=== PATIENT | female | born 1975 | race Caucasian/White ===

== ENCOUNTER 2016-12-01 07:53 | Emergency (ER) | payer OTHER ==
[2016-12-01 09:13] VITALS: BP 93/49
--- NOTE | 2016-12-01 09:17 | UC ---
Respiratory Complaint HPI - HPI Summary HPI Summary: 41 yo female with cough/post nasal drip /sinus pain and pressure x 5 days no f/c no cp or sob hx sinusitis - History of Current Complaint Chief Complaint: UCRespiratory Stated Complaint: SINUS,SORE THROAT,EAR PAIN Time Seen by Provider: 12/01/16 09:04 Hx Obtained From: Patient Hx Last Menstrual Period: 11/27/16 Onset/Duration: Gradual Onset, Lasting Days Timing: Constant Severity Initially: Moderate Severity Currently: Moderate Pain Intensity: 4 Pain Scale Used: 0-10 Numeric Character: Cough: Nonproductive Aggravating Factors: Nothing Alleviating Factors: Nothing Associated Signs And Symptoms: Positive: Nasal Congestion, Hoarseness, Sinus Discomfort - Allergies/Home Medications Allergies/Adverse Reactions: Allergies Allergy/AdvReac Type Severity Reaction Status Date / Time Penicillins Allergy Airway Verified 12/01/16 08:26 Obstruction Sulfa Antibiotics Allergy Airway Verified 12/01/16 08:26 Obstruction Home Medications: Home Medications Acetaminophen [Acetaminophen Extra Stren] 1,500 mg PO PRN 12/01/16 [History] Pantoprazole TAB (NF) [Protonix TAB (NF)] 20 mg PO DAILY 12/01/16 [History Confirmed 12/01/16] buPROPion TAB* [Wellbutrin TAB*] 100 mg PO BID 12/01/16 [History Confirmed 12/01] PMH/Surg Hx/FS Hx/Imm Hx Previously Healthy: Yes Endocrine History Of: Reports: Thyroid Disease - Hypothyroidism Denies: Diabetes Cardiovascular History Of: Denies: Hypertension GI/ History Of: Denies: Ulcer, Gastrointestinal Bleed, Gall Bladder Disease, Renal Disease Neurological History Of: Reports: Migraine - ON MEDS Denies: TIA, CVA, Dementia, Seizures Psychological History Of: Reports: Anxiety - ON MEDS Other History Of: Negative For: Anticoagulant Therapy - Surgical History Surgical History: Yes Surgery Procedure, Year, and Place: JULIA VARICOSE VEINS, 2007[place] [facility] [place] , [facility] [place] - Family History Known Family History: Positive: Hypertension - dad - Social History Alcohol Use: None Substance Use Type: None Smoking Status (MU): Former Smoker Amount Used/How Often: PACK A DAY Length of Time of Smoking/Using Tobacco: 7 years Have You Smoked in the Last Year: No When Did the Patient Quit Smoking/Using Tobacco: 2009 - Immunization History Most Recent Influenza Vaccination: June 2015 Most Recent Tetanus Shot: UNKNOWN Most Recent Pneumonia Vaccination: NEVER Review of Systems Constitutional: Negative Skin: Negative Eyes: Negative ENT: Ear Ache, Nasal Discharge Respiratory: Cough Cardiovascular: Negative Gastrointestinal: Negative Genitourinary: Negative Motor: Negative Neurovascular: Negative Musculoskeletal: Negative Neurological: Negative Psychological: Negative All Other Systems Reviewed And Are Negative: Yes Physical Exam Triage Information Reviewed: Yes Appearance: Well-Appearing, No Pain Distress, Well-Nourished Vital Signs: Initial Vital Signs Temp 99.7 F 12/01/16 08:22 Pulse 73 12/01/16 08:22 Resp 14 12/01/16 08:22 BP 93/49 12/01/16 08:22 Pulse Ox 100 12/01/16 08:22 Vital Signs Reviewed: Yes Eyes: Positive: Conjunctiva Clear ENT: Positive: Hearing grossly normal, Nasal congestion, Nasal drainage, TM bulging, Other: - bilat max sinus tenderness L>R. Negative: Tonsillar swelling , Tonsillar exudate, Trismus, Muffled/hoarse voice Neck: Positive: Supple, Nontender, No Lymphadenopathy Respiratory: Positive: Lungs clear, Normal breath sounds, No respiratory distress, No accessory muscle use Cardiovascular: Positive: RRR, No Murmur Musculoskeletal: Positive: ROM Intact, No Edema Neurological: Positive: Alert Psychological Exam: Normal Skin Exam: Normal UC Diagnostic Evaluation - Laboratory O2 Sat by Pulse Oximetry: 100 - normal/not hypoxic Respiratory Course/Dx - Differential Dx/Diagnosis Provider Diagnoses: acute sinusitis Discharge - Discharge Plan Condition: Stable Disposition: HOME Prescriptions: Azithromycin TAB* [Zithromax TAB (Z-JOSE M) 250 mg #6 tabs] 250 mg PO DAILY #6 tab Patient Education Materials: Sinusitis (ED) Forms: *Gen. Provider Communication Referrals: Najma Butler MD [Primary Care Provider] - If Needed Additional Instructions: recheck for new or worsening symptoms recheck next week if not better
== END 2016-12-01 09:16 | disposition home or self-care (01) ==
LOC: UCCORT 07:53
DX: J01.90 Acute sinusitis, unspecified (principal); E03.9 Hypothyroidism, unspecified; G43.909 Migraine, unspecified, not intractable, without status migrainosus; F41.9 Anxiety disorder, unspecified; Z88.0 Allergy status to penicillin; Z88.2 Allergy status to sulfonamides; Z87.891 Personal history of nicotine dependence
CPT/HCPCS: 99212; G0463

== ENCOUNTER 2017-01-06 06:35 | Day surgery (SDC) | payer OTHER ==
--- NOTE | 2016-12-29 18:56 | HP ---
HISTORY AND PHYSICAL: DATE OF ADMISSION: 01/06/17 The patient is scheduled at [facility] for surgery on 01/06/17. CHIEF COMPLAINT: Varicose veins, venous stasis disease of the right lower leg and ganglion cyst of the left wrist. HISTORY OF PRESENT ILLNESS: This is a 41-year-old female with a history of recurrent varicose veins involving her right leg. Her past history is significant for undergoing vein surgery approximately 7 years ago on both legs and did quite well until recently. Recently, she developed and noticed increasing varicose veins, large truncal varicosities involving the right leg along the anterolateral aspect of the leg. She had undergone gastric bypass in 2014 and after losing 120 pounds since the bypass, these varicose veins became more noticeable. She has no prior history of DVT. Her last episode of vein symptoms were prior to her surgery 7 years ago, had an episode of phlebitis during her , but other than that and since that surgery, has had no recurrent thrombophlebitis. The patient also complains of swelling at the end of the day involving her right leg. She complains of heaviness and achiness involved in the right leg. Along with her complaints of the right leg symptoms , she brought to Dr. Foley's attention a bump above the wrist, on the inner aspect of her left wrist. Physical exam, the right leg reveals no ulceration to her skin, hyperpigmentation and no evidence of thrombophlebitis. There are large truncal varicosities in the 8 mm range on the anterolateral aspect of the thigh anteriorly as well as laterally and below the knee. She does have what appears to be a ganglion cyst just above the wrist, on the inner aspect of the wrist towards the base of the thumb. This is mobile, smooth approximately 1 cm in size. Duplex scan was done on 12/08/16 of the right leg, this revealed deep system was found to be open, there was no evidence of DVT or reflux. The greater saphenous vein at the saphenofemoral junction measured 10.8 mm. The greater saphenous vein itself was absent. The reflux time at saphenofemoral junction is 3.8 seconds. The anteromedial accessory branch measured 7.5 mm with the reflux time of 3.1 seconds. There are varicosities derived from this medial accessory branch. The short saphenous vein on the right measured 4.4 mm without reflux. The varicose vein of the medial aspect of this leg by ultrasound measured 8.9 mm. Due to these findings by ultrasound and physical exam and the fact that the patients is symptomatic, it was Dr. Foley's recommendation to proceed with endoluminal closure of an incompetent right medial accessory branch of the right leg with extensive microphlebectomies performed on the right leg. The patient uses her hands a great deal. 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 Foley will perform excision of this ganglion cyst of the left wrist. This surgery itself is scheduled at [facility] on 01/06/17. The patient understands the procedure itself, is aware of the risks and wishes to proceed with the surgery as explained to her. PAST MEDICAL HISTORY: Significance for having hypothyroidism since a teenager. History of migraine headaches for which she takes propranolol. She has a history of anxiety and takes medications for that as well. History of stomach ulcer in the past. She had been obese prior to her gastric bypass surgery. In 2014, she underwent gastric bypass with Dr. Redd and has since lost 120 pounds. She is status post vein surgery to both lower legs approximately 11 years ago done by Dr. Foley with an excellent results. She denies any history of cardiac disease, heart murmur, diabetes, hypertension , or any other chronic medical disorders. Since the gastric bypass, she said to have a balloon dilatation of the bypass, so this was done twice since the surgery and the last episode of this was 8 months ago. Her eating associated with gastric bypass, so she needs to eat something approximately every hour in small amounts. MEDICATION: She is unable to take ibuprofen due to the gastric bypass. CURRENT MEDICATIONS: That she is taking is: 1. Synthroid 100 mcg once daily. 2. She takes propranolol 60 mg p.o. b.i.d. this is for her migraine. 3. She takes bupropion 100 mg b.i.d. for anxiety. ALLERGIES: She is allergic to PENICILLIN and SULPHATE medications, has an anaphylactic reaction to those. FAMILY HISTORY: Significant for on her paternal side, father and other members having extensive varicose veins issues. Father is from an aneurysm. SOCIAL HISTORY: She is . She has 1 daughter who is age 11. 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 She is a nonsmoker, but previously smoked 1 pack per day for 15 years and has no history of alcohol use, heavy use, drinks socially only and very limited since her gastric bypass. She has no history of hepatitis. PHYSICAL EXAMINATION VITAL SIGNS: The patient is 5 feet 5 inches, weight is 130 pounds. Blood pressure is 117/79. BMI is 21.6. Pulse is 89, respiratory rate is 18. HEENT: Within normal limits. NECK: Supple. There is no JVD or carotid bruits. Her thyroid is felt to be normal. LUNGS: Her lungs are clear throughout. HEART: Regular rhythm without a murmur heard. BREAST EXAM: Was not done. It was done by her primary who she sees regularly and she is due for her first mammogram at age 42. ABDOMEN: Soft and nontender. She does have some well-healed scars, which are minimal from laparoscopic surgery, but there is no masses and no enlarged organs. The abdomen itself is soft and nontender. EXTREMITIES: Reveal pulses are good in the femoral region distally down to the dorsalis pedis for 2 + pulses. She does have visible varicose veins on the anterior aspect of her right leg, this then extends down laterally along the leg and it is fairly extensive. She has trace edema. The left leg is really without varicose veins. NEUROLOGIC: The patient is alert and oriented. She is very pleasant. She is nonfocal and grossly intact. IMPRESSION: 1. The patient with recurrent varicose veins involving the right lower leg. 2. The patient with ganglion cyst on the inner aspect of her left wrist measures approximately 8 mm to a centimeter in size, quite mobile. PLAN: The patient is to undergo endoluminal closure of the right medial accessory branch of the right lower leg, extensive microphlebectomies of the right leg, and excision of ganglion cyst of the left wrist. This will all be performed by Dr. Foley. Prescription for Tylenol with Codeine was called into her pharmacy, so that will be available to her postop. The patient is unable to take ibuprofen because of the gastric bypass. LEEANNE FAULKNER [id number]/[facility] #: [id number] [facility]ITAL[facility]
[~2017-01-06 06:35] MED LIST: Buffered Lidocaine 0.9% SYRIN* 5 ML/SYR SYRINGE INTRADERM ONE; Dexamethasone IV* 4 MG/ML 1 ML (4 MG) IV SLOW PU ONE; Dexamethasone IV* 4 MG/ML 1 ML (4 MG) ONE
[2017-01-06] MEDS ORDERED: Lidocaine 2% PF* 10 ML AMP ONE (07:13)
[2017-01-06] MEDS ORDERED: EPINEPHrine AMP 1 MG/ML ONE (07:13)
[2017-01-06] MEDS ORDERED: Lidocaine 2% PF * 5 ML VIAL ONE (07:13)
[2017-01-06] MEDS ORDERED: Lidocaine 1% MPF* 2 ML VIAL ONE (07:14)
[2017-01-06] MEDS ORDERED: Sodium Bicarbonate 8.4% IV* 50 ML VIAL ONE (07:26)
[2017-01-06] MEDS ORDERED: Midazolam* 1 MG/ML 5 ML VIAL (5 MG) ONE (07:36)
[2017-01-06] MEDS ORDERED: fentaNYL* 50 MCG/ML 2 ML VIAL (100 MCG VIAL) ONE (07:36)
[2017-01-06] MEDS ORDERED: POLIDOCANOL IV ONE (07:36)
[2017-01-06] MEDS ORDERED: Ondansetron INJ* 2 MG/ML VIAL ONE (07:37)
[2017-01-06] MEDS ORDERED: Ketorolac INJ* 30 MG/ML 1 ML VIAL ONE (07:37)
[2017-01-06] MEDS ORDERED: Propofol* 10 MG/ML 20 ML BTL IV PUSH ONE (07:37)
[2017-01-06] MEDS ORDERED: Lidocaine 1% INJ* 10 MG/ML 30 ML SDV ONE (07:46)
[2017-01-06 09:57] VITALS: BP 90/48
--- NOTE | 2017-01-07 06:23 | OP ---
DATE OF OPERATION: 01/06/17 - [facility] DATE OF : 79 SURGEON: Dell Foley MD ANESTHESIOLOGIST: Beau Sabillon MD ANESTHESIA: Local plus MAC. PRE-OP DIAGNOSIS: Superficial venous reflux disease of right lower extremity secondary to an incompetent right anteromedial accessory branch of the greater saphenous vein. POST-OP DIAGNOSIS: Superficial venous reflux disease of right lower extremity secondary to an incompetent right anteromedial accessory branch of the greater saphenous vein. OPERATIVE PROCEDURE: 1. Endovenous laser ablation of medial accessory branch of the greater saphenous vein. 2. Extensive microphlebectomies, greater than 20 incisions. 3. Excision of ganglion cyst of the left wrist. INDICATIONS: The patient is a 41-year-old female with symptomatic varicose veins of the right lower extremity secondary to an incompetent medial accessory branch of the greater saphenous vein. The patient has symptomatic ganglion cyst of the left wrist. ESTIMATED BLOOD LOSS: Less than 10 cc. DESCRIPTION OF PROCEDURE: The patient was taken to the procedure room. Two operations were done separately, first the right lower extremity surgery was done first. The patient was prepped and draped in the usual sterile fashion. After adequate identification and time-out, lidocaine 1% was used to infiltrate on the medial upper third of the thigh and percutaneous cannulation of the medial accessory branch was done under ultrasound guidance. Once the small needle and wire were in place, the needle was exchanged for a 4-Nepalese catheter. Subsequently, we proceeded to advance the 600 micron laser fiber inside the medial accessory branch, positioned into tip of the laser fiber 1.5 cm from the sapheno-femoral junction. We then proceeded to infiltrate tumescent local anesthesia around the vein and the catheter from the entrance point up to the saphenofemoral junction. After this was completed, we then proceeded to activate the diode laser at 12 nuno continuously. Catheter was then pulled back slowly and gradually delivering a total of 600 joules to the medial accessory branch. After this was completed, there was evidence of closure of the treated vein; however, the common femoral vein appeared to be compressible without any abnormalities. After this was completed, we then proceeded to remove the previously marked varicose veins by small incisions in a stab avulsion technique. Greater than 20 incisions were performed. After this was completed, the incisions were closed with 5-0 Prolene and Steri- Strips. A light pressure dressing was applied to the right lower extremity. The patient tolerated the procedure well. We then proceeded to prep and drape with proper time-out of the left wrist for excision of the ganglion cyst. After this was done and under sedation, lidocaine 1% was used to infiltrate in the area of the ganglion cyst located on the lateral aspect of the wrist. The cyst measured approximately 8-mm in diameter. A good local anesthesia had been given around the area. A transverse incision was performed. The incision was carried down through the skin and subcutaneous tissue. Veins from the surrounding area were retracted and exposure of the capsule of the cyst was done. The cyst was then dissected off completely all the way down to the wrist and the capsule was then transected and sent as a specimen. Synovial fluid was came out of the cyst. The cyst was left open. The area was checked for hemostasis. No bleeding was noted. Subcutaneous tissue was closed with interrupted 4-0 Vicryl suture and the skin was closed with vertical mattress 5- 0 Prolene sutures and a hand dressing was applied to the left hand. The procedure was well tolerated. She was taken in good condition to recovery room. [id number]/[facility] #: [id number] [facility]ITAL[facility]
== END 2017-01-06 09:57 | disposition home or self-care (01) ==
LOC: OREAST 06:35
PROVIDERS: ATTEND Surgery
DX: I87.2 Venous insufficiency (chronic) (peripheral) (principal); I83.891 Varicose veins of right lower extremity with other complications; M67.432 Ganglion, left wrist; E03.9 Hypothyroidism, unspecified; F41.9 Anxiety disorder, unspecified; G43.909 Migraine, unspecified, not intractable, without status migrainosus; Z88.0 Allergy status to penicillin; Z88.2 Allergy status to sulfonamides; Z87.891 Personal history of nicotine dependence
CPT/HCPCS: 88300; 88304; J0171; J1100; J1885; J2001; J2250; J2405; J2704; J3010

== ENCOUNTER 2018-08-27 15:50 | Emergency (ER) | payer OTHER ==
[2018-08-27 16:25] VITALS: BP 114/65
[2018-08-27] MEDS ORDERED: Albuterol 2.5 MG/3 ML NEB.SOL* (0.083%) INH ONE (16:34)
--- NOTE | 2018-08-27 16:34 | UC ---
UC General HPI - HPI Summary HPI Summary: PT C/O A HEADACHE, SINUS CONGESTION, POST NASAL DRIP, SORE THROAT, SWOLLEN GLANDS AND COUGH WITH CHEST CONGESTION PLUS LUNGS FEEL TIGHT X 1 WEEK. NO CP OR HX OF ASTHMA OR COPD. + BODY ACHES. 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 - History of Current Complaint Chief Complaint: UCGeneralIllness Stated Complaint: CHUNG,SWOLLEN GLANDS,ST,ACHY,BILATERAL EAR PAIN Time Seen by Provider: 08/27/18 16:20 Hx Obtained From: Patient Hx Last Menstrual Period: 08/05/18 Onset/Duration: Gradual Onset Timing: Constant Pain Intensity: 6 Associated Signs & Symptoms: Negative: Chest Pain, Diarrhea, Vomiting - Allergy/Home Medications Allergies/Adverse Reactions: Allergies Allergy/AdvReac Type Severity Reaction Status Date / Time Penicillins Allergy Airway Verified 08/27/18 16:23 Obstruction Sulfa (Sulfonamide Allergy Airway Verified 08/27/18 16:23 Antibiotics) Obstruction PMH/Surg Hx/FS Hx/Imm Hx Endocrine History: Thyroid Disease GI/ History: Gastroesophageal Reflux Neurological History: Migraine Psychological History: Depression Other History Of: Negative For: Anticoagulant Therapy - Surgical History Surgical History: Yes Surgery Procedure, Year, and Place: JULIA VARICOSE VEINS, 2007, [facility] [place]. [place] , [facility] [place]. leaky stitches from gastric bypass - Family History Known Family History: Positive: Hypertension - dad - Social History Alcohol Use: None Substance Use Type: None Smoking Status (MU): Former Smoker Amount Used/How Often: PACK A DAY for 10 years Length of Time of Smoking/Using Tobacco: 7 years Have You Smoked in the Last Year: No When Did the Patient Quit Smoking/Using Tobacco: 2006 - Immunization History Most Recent Influenza Vaccination: June 2015 Most Recent Tetanus Shot: UNKNOWN Most Recent Pneumonia Vaccination: NEVER Review of Systems All Other Systems Reviewed And Are Negative: Yes Constitutional: Positive: Fever Skin: Positive: Negative Eyes: Positive: Negative Respiratory: Negative: Shortness Of Breath Cardiovascular: Negative: Palpitations, Chest Pain Gastrointestinal: Positive: Negative Genitourinary: Positive: Negative Motor: Positive: Negative Neurovascular: Positive: Negative Musculoskeletal: Positive: Negative Psychological: Positive: Negative Physical Exam Triage Information Reviewed: Yes Appearance: Well-Appearing Vital Signs: Initial Vital Signs Temp 97.8 F 08/27/18 16:21 Pulse 77 08/27/18 16:21 Resp 15 02/11/19 16:21 BP 114/65 08/27/18 16:21 Pulse Ox 100 08/27/18 16:21 Vital Signs Reviewed: Yes Eyes: Positive: Conjunctiva Clear ENT: Positive: Pharyngeal erythema, TMs normal. Negative: Nasal drainage Neck: Positive: Supple, Tenderness @ - PERITONSILAR NODES, Enlarged Nodes @ - PERITONSILAR NODES Respiratory: Positive: Lungs clear, No respiratory distress, Decreased breath sounds Cardiovascular: Positive: RRR, No Murmur Abdomen Description: Positive: Nontender, No Organomegaly, Soft Bowel Sounds: Positive: Present Musculoskeletal: Positive: ROM Intact Neurological: Positive: Alert Psychological: Positive: Age Appropriate Behavior Skin Exam: Normal Diagnostics - Laboratory Diagnostic Studies Completed/Ordered: RAPID STREP=NEG. RAPID FLU=NEG Re-Evaluation - Re-Evaluation First Eval Re-Evaluation Time: 17:06 Change: Improved - BETTER AERATION. Course/Dx - Differential Dx - Multi-Symptom Differential Diagnoses: Other - RAPID STREP AND FLU ARE NEGATIVE. URI AND BRONCHITIS ON EXAM. NO INDICATION FOR ANTIBIOTICS - Diagnoses Provider Diagnosis: URI (upper respiratory infection), Bronchitis Discharge - Sign-Out/Discharge Documenting (check all that apply): Patient Departure All imaging exams completed and their final reports reviewed: No - Discharge Plan Condition: Stable Disposition: HOME Prescriptions: Albuterol HFA INHALER* [Ventolin HFA Inhaler*] 2 puff INH Q6H #1 mdi Patient Education Materials: Upper Respiratory Infection (DC), Acute Bronchitis (ED) Referrals: Najma Butler MD [Primary Care Provider] - 5 Days - Billing Disposition and Condition Condition: STABLE Disposition: Home
[2018-08-27 17:07] LABS: Influenza A Molecular NEGATIVE (Negative); Influenza B Molecular NEGATIVE (Negative)
--- NOTE | 2018-08-28 07:16 | UC ---
Re-Evaluation - Re-Evaluation First Eval Re-Evaluation Time: 17:06 Change: Improved - BETTER AERATION. Course/Dx - Diagnoses Provider Diagnoses: URI (upper respiratory infection), Bronchitis Discharge - Sign-Out/Discharge Documenting (check all that apply): Patient Departure All imaging exams completed and their final reports reviewed: No Studies - Discharge Plan Condition: Stable Disposition: HOME Prescriptions: Albuterol HFA INHALER* [Ventolin HFA Inhaler*] 2 puff INH Q6H #1 mdi Patient Education Materials: Upper Respiratory Infection (DC), Acute Bronchitis (ED) Referrals: Najma Butler MD [Primary Care Provider] - 5 Days - Billing Disposition and Condition Condition: STABLE Disposition: Home
== END 2018-08-27 17:20 | disposition home or self-care (01) ==
LOC: UCCORT 15:50
DX: J06.9 Acute upper respiratory infection, unspecified (principal); J40 Bronchitis, not specified as acute or chronic; Z88.0 Allergy status to penicillin; Z88.2 Allergy status to sulfonamides; Z87.891 Personal history of nicotine dependence
CPT/HCPCS: 87651; 99212; G0463

== ENCOUNTER → 2019-10-04 06:48 | Day surgery (SDC) | payer OTHER ==
[~2019-10-04 06:48] MED LIST changes: -Buffered Lidocaine 0.9% SYRIN* 5 ML/SYR SYRINGE INTRADERM ONE; +Buffered Lidocaine 1% SYRIN* 1 ML/SYRINGE INTRADERM ONE; -Dexamethasone IV* 4 MG/ML 1 ML (4 MG) IV SLOW PU ONE; -Dexamethasone IV* 4 MG/ML 1 ML (4 MG) ONE; +EPHEDrine (Pressors)* 50 MG/ML VIAL ONE; +Lactated Ringers 1000 ML Bag* 1,000 ML IV SCH; +Naloxone* 0.4 MG/ML 1 ML VIAL IV PRN; +Ondansetron INJ* 2 MG/ML VIAL ONE; +Propofol* 10 MG/ML 20 ML BTL ONE
[2019-10-04 11:03] VITALS: BP 104/61
--- NOTE | 2019-10-14 12:28 | PRO ---
CC: Dr. Lamin Redd; Dr. Najma Butler * DATE OF PROCEDURE: 10/04/2019. INDICATION FOR PROCEDURE: Abdominal discomfort, nausea. PROCEDURE PERFORMED: Complete esophagogastroduodenoscopy with dilation and biopsies. MEDICATIONS GIVEN: Please see anesthesia record. DESCRIPTION OF PROCEDURE: After the EGD procedure, including the risks, benefits and alternatives, with the risks not limited to perforation, surgery, missed lesions and/or were explained to the patient. Written informed consent was obtained. IV medication was given and a bite block was placed between the teeth. The adult Olympus gastroscope was then inserted into the patient's oropharynx, into the tubular esophagus. The tubular esophagus was normal in appearance with very mild GE junction variability, but no erosive component. Biopsies were taken to rule out microscopic reflux disease. The scope was then advanced through the lower esophageal sphincter into the pouch. The pouch was normal in appearance without any erythema; however, a biopsy was taken to rule out H. pylori infection. The anastomosis was widely patent. There was no stricturing or narrowing appreciated. The scope was advanced into the jejunum which was normal in appearance. The pouch was of appropriate size at about 8 cm. Given her previous anastomotic narrowing contributing to symptomatology, I empirically dilated her to 15 mm with a TTS-CRE balloon dilator. This was done empirically. No rent was seen; however, good dilation likely did occur. The scope was then removed from the patient. She tolerated the procedure well. She returned to the recovery room in stable condition. IMPRESSION: 1. Complete esophagogastroduodenoscopy with dilation and biopsies. 2. Essentially normal post bypass anatomy. Mild GE junction variability biopsied. 3. Empiric dilation done without significant rent given prior GJ stricture. 4. Widely patent GJ junction. RECOMMENDATIONS: Will increase her PPI to b.i.d. to see if she gets relief. I do not have any clear evidence for her symptomatology today. She can follow-up with both Dr. Redd and LEEANNE Sheridan in our office for further management. [id number]/[facility] #: [id number] [facility]
== END | disposition home or self-care (01) ==
LOC: OR 06:48
PROVIDERS: ATTEND Internal Medicine Gastroenterology
DX: R10.13 Epigastric pain (principal); Z98.84 Bariatric surgery status; K21.0 Gastro-esophageal reflux disease with esophagitis; E03.9 Hypothyroidism, unspecified; G47.33 Obstructive sleep apnea (adult) (pediatric); F41.8 Other specified anxiety disorders; E66.9 Obesity, unspecified
CPT/HCPCS: 81025; 87077; 88305; J2405; J2704